=== PATIENT | male | born 1985 | race Caucasian/White ===

== ENCOUNTER 2017-11-24 10:20 | Inpatient (IN) | payer BC ==
[~2017-11-24] VITALS: Ht 180.3 cm; Wt 137.0 kg
[~2017-11-24 10:20] MED LIST: ASPIR-MOX 325325 M1 PO; CLOPIDOGREL BIS75 MG PO; FLAGYL500 MG PO; Gemfibrozil PO; LEVAQUIN750 MG PO; THIAMINE PO; Z.0.COUMADIN7.5 MG PO; Z.0.CYMBALTA60 MG PO; Z.0.DIGOXIN125 MCG PO; Z.0.GABAPENTIN300 MG PO; Z.0.LASIX20 MG PO; Z.0.LISINOPRIL2.5 MG PO; Z.0.METOPROLOL TART2 PO; Z.0.PREVACID30 MG PO; Z.0.SPIRONOLACTONE25 PO; Z.0.VICODIN 5-5001 E PO; [UNRECOGNIZED DRUG - OTHER] PO; [UNRECOGNIZED DRUG - OTHER] PO
[2017-11-24] MEDS ORDERED: ASPIRIN 81 MG CHEW TAB PO ONE ×2 (10:30→12:00)
[2017-11-24 10:48] LABS: BASOPHILS # (AUTO) 0.2 (0.0-0.1); BASOPHILS % 1.5 % (0.0-1.0); EOSINOPHILS # (AUTO) 0.2 (0.0-0.4); HEMATOCRIT 47.8 % (38.2-49.6); HEMOGLOBIN 16.3 g/dL (14.0-18.0); LYMPHOCYTES # (AUTO) 4.4 (1.0-3.2); LYMPHOCYTES % 42.3 % (18.0-39.1); MEAN CORPUSCULAR HGB CONC 34.1 g/dL (31-35); MEAN CORPUSCULAR VOLUME 87.9 fL (81-99); MONOCYTES # (AUTO) 0.7 (0.2-0.8); MONOCYTES % 6.8 % (4.4-11.3); NEUTROPHILS # (AUTO) 4.8 (2.1-6.9); NEUTROPHILS % 46.6 % (38.7-80.0); PLATELET COUNT 254 x10e3/uL (140-360); RED BLOOD COUNT 5.44 x10e6/uL (4.3-5.7); RED CELL DISTRIBUTION WIDTH 12.5 % (11.7-14.4)
[2017-11-24 10:59] LABS: INR 1.08; PROTHROMBIN TIME 13.2 seconds (11.9-14.5)
[2017-11-24 11:00] LABS: PARTIAL THROMBOPLASTIN TIME 29.8 seconds (23.8-35.5)
[2017-11-24 11:09] LABS: ALANINE AMINOTRANSFERASE 134 IU/L (0-55); ALBUMIN 3.8 g/dL (3.5-5.0); ALBUMIN/GLOBULIN RATIO 0.9 (0.8-2.0); ALKALINE PHOSPHATASE 87 IU/L (40-150); BLOOD UREA NITROGEN 13 mg/dL (7-26); BUN/CREATININE RATIO 11 (6-25); CALCIUM 9.8 mg/dL (8.4-10.2); CARBON DIOXIDE 25 mmol/L (22-29); CHLORIDE 103 mmol/L (98-107); CREATINE KINASE 245 IU/L (30-200); CREATININE, SERUM 1.23 mg/dL (0.72-1.25); EST GLOMERULAR FILTRATION RATE > 60 ML/MIN (60-); GLUCOSE 116 mg/dL (74-118); SODIUM 137 mmol/L (136-145)
[2017-11-24] MEDS ORDERED: SODIUM CHLORIDE 0.9% 500ML 500 ML IV STA (11:17)
[2017-11-24] MEDS ORDERED: MORPHINE SULFATE INJ 4 MG/ML INJ IV STA (11:17)
[2017-11-24] MEDS ORDERED: ONDANSETRON HCL INJ 2 MG/ML VIAL IV STA (11:17)
--- NOTE | 2017-11-24 11:22 | Diagnostic Imaging Report ---
PROCEDURE:X-RAY CHEST, ONE VIEW COMPARISON:None. INDICATIONS:CHEST TIGHTNESS FINDINGS: There are sternotomy wire sutures. There are no consolidations, pleural effusions or pneumothorax. The cardiomediastinal silhouette and pulmonary vasculature are normal. There are no acute osseous abnormalities. CONCLUSION: No acute cardiopulmonary abnormality. Radhames Cardona D.O. Dictated by: Radhames Cardona D.O. on 11/24/2017 at 11:23 Electronically approved by: Radhames Cardona D.O. on 11/24/2017 at 11:23
[2017-11-24 11:26] LABS: BILIRUBIN,URINE NEGATIVE (NEGATIVE); CLARITY,URINE CLEAR (CLEAR); COLOR,URINE YELLOW (YELLOW); KETONES,URINE NEGATIVE (NEGATIVE); LEUKOCYTE ESTERASE ,URINE 1+ (NEGATIVE); NITRITE,URINE NEGATIVE (NEGATIVE); PROTEIN,URINE DIPSTICK 1+ (NEGATIVE); URINE UROBILINOGEN 0.2 mg/dL (0.2 - 1)
[2017-11-24] MEDS ORDERED: MORPHINE SULFATE 2 MG/ML SYR ONE (11:27)
[2017-11-24 11:37] LABS: BACTERIA,URINE RARE /HPF; EPITHELIAL CELLS,URINE RARE /LPF; TRICHOMONAS,URINE FEW
--- OUTSIDE RECORDS SUMMARY | 2017-11-24 12:59 | XMS REPORT ---
[facility] Address Unknown Phone Unavailable Care Team Providers Care Orthopedic Cast Specialist Name Role Phone MARYA MICHAEL Unavailable Unavailable Problems This patient has no known problems. Allergies, Adverse Reactions, Alerts This patient has no known allergies or adverse reactions. Medications This patient has no known medications. Results Test Description Test Time Test Comments Text Results Atomic Results Result Comments CHEST SINGLE (NOT PORTABLE) [place] [address] Patient Name: NUVIA BLANC MR #: [id number] : 1985 Age/Sex: 32/M Req #: [id number] Adm Physician: Ordered by: LYNETTE COONEY VP & GENERAL COUNSEL Report #: [id number] Location: ER Room/Bed: _ Procedure: [id number] DX/CHEST SINGLE (NOT PORTABLE) Exam Date: 11/24/17 Exam Time: 1043 REPORT STATUS: Signed PROCEDURE: X-RAY CHEST, ONE VIEW COMPARISON: None. INDICATIONS: CHEST TIGHTNESS FINDINGS: There are sternotomy wire sutures. There are no consolidations, pleural effusions or pneumothorax. The cardiomediastinal silhouette and pulmonary vasculature are normal. There are no acute osseous abnormalities. CONCLUSION: No acute cardiopulmonary abnormality. Olya Cardona D.O. Dictated by: Olya Cardona D.O. on 11/24/2017 at 11:23 Electronically approved by: Olya Cardona D.O. on 11/24/2017 at 11:23 Dictated By: OLYA CARDONA DO 1123 Transcribed By: LEODAN on 11/24/17 1123 COPY TO: LYNETTE COONEY NP
[2017-11-24] MEDS: ONDANSETRON HCL 4 MG ORAL DISINTEGRATING TAB PO PRN ×2 (15:30→19:59)
[2017-11-24] MEDS: MORPHINE SULFATE 2 MG/ML SYR IV PRN ×2 (15:31→19:59)
[2017-11-24 19:44] LABS: CREATINE KINASE MB 2.1 ng/mL (0-5.0)
[2017-11-24 20:53] VITALS: BP 141/78
--- NOTE | 2017-11-24 21:49 | Consultation ---
DATE OF CONSULTATION: November 24, 2017 CARDIAC CONSULTATION REQUESTING PHYSICIAN: Dr. Raygoza. REASON FOR CONSULTATION: Chest pain. HISTORY OF PRESENT ILLNESS: This is a 32-year-old man with history of ASD, status post surgical repair, complicated by myocardial infarction who presents with complaints of chest pain. He reports he was in his usual state of health until this morning when he developed chest tightness around 10 a.m. The pain was 9-10 out of 10 in severity and has been off and on since onset. This was associated with left arm discomfort. However, he denied any shortness of breath, nausea or diaphoresis. He denies palpitations, edema, orthopnea, PND, lightheadedness or syncope. REVIEW OF SYSTEMS: Negative except as per HPI. PAST MEDICAL HISTORY: History of ASD, status post surgical repair complicated by a reported myocardial infarction. PAST SURGICAL HISTORY: ASD repair, cholecystectomy. ALLERGIES: NO KNOWN DRUG ALLERGIES. MEDICATIONS: Please see EMR. SOCIAL HISTORY: He smokes 1-2 cigarettes a day. No alcohol or drugs. FAMILY HISTORY: Pertinent for parents with coronary artery disease with first myocardial infarction in the 40s and multiple stents. PHYSICAL EXAMINATION VITAL SIGNS: Temperature 98.1 degrees, pulse 88, respiratory rate 20, blood pressure 130/86, oxygen saturation 96% on room air. GENERAL: An obese gentleman in no acute distress. He is well-nourished, well-developed. HEENT: Normocephalic, atraumatic. Pupils are equal. No scleral icterus. NECK: Supple. No thyromegaly or cervical lymphadenopathy. No carotid bruits. LUNGS: Clear to auscultation bilaterally. No wheezes or crackles. CARDIOVASCULAR: Normal rate, regular rhythm. Normal S1 and S2. ABDOMEN: Soft and nontender. EXTREMITIES: No edema. NEUROLOGIC: Nonfocal exam. LABORATORY DATA: WBC 10.33, hemoglobin 16.3, hematocrit 47.8, platelets 254,000. Sodium 137, potassium 4, chloride 103, CO2 of 25, BUN 13, creatinine 1.23. CK 245, CK-MB 2.9. Troponin 0.029. UA 1+ protein, 1+ leukocyte esterase, 11-20 WBCs. Chest x-ray with no acute cardiopulmonary abnormality. EKG: Normal sinus rhythm with nonspecific intraventricular block, inferior infarct, age undetermined. Q-wave abnormality, consider lateral ischemia. IMPRESSION 1. Chest pain. 2. History of atrial septal defect, status post surgical repair complicated by reported myocardial infarction. 3. Elevated LFTs. 4. Obesity. RECOMMENDATIONS: Trend cardiac enzymes. Obtain echocardiogram for further evaluation. Nuclear stress test to rule out ischemia given his family history in the morning. Thank you for this consult. We will continue to follow. Job#: [id number] HOA
[2017-11-25] VITALS (7 sets, daily range): BP systolic 112–141; BP diastolic 55–86
[2017-11-25] MEDS: MORPHINE SULFATE 2 MG/ML SYR IV PRN ×3 (00:25→08:45)
[2017-11-25 07:15] LABS: CHOL/HDL RATIO 7.4 (3.9-4.7)
[2017-11-25 07:41] LABS: CREATINE KINASE MB 1.8 ng/mL (0-5.0); THYROID STIMULATING HORMONE 1.926 uIU/mL (0.350-4.940)
[2017-11-25] MEDS ORDERED: ASPIRIN 81 MG ENTERIC COATED PO SCH (09:00)
--- NOTE | 2017-11-25 10:14 | Progress Note ---
DATE: November 25, 2017 CARDIOLOGY PROGRESS NOTE SUBJECTIVE: Patient reports he still has a little chest pain. He denies any shortness of breath. OBJECTIVE: VITAL SIGNS: Temperature 96.5 degrees, pulse 69, respiratory rate 16, blood pressure 112/55, oxygen saturation 94% on room air. GENERAL: Awake, alert, in no acute distress. LUNGS: Clear to auscultation bilaterally. No wheezes or crackles. CARDIOVASCULAR: Normal rate, regular rhythm. No murmur. Normal S1, S2. ABDOMEN: Soft, nontender. EXTREMITIES: No edema. CARDIAC MEDICATIONS: Aspirin 81 mg p.o. daily. LABS: Cholesterol 230, triglycerides 359, LDL 127, HDL 31. Troponin 0.021. TELEMETRY: Normal sinus rhythm. IMPRESSION: 1. Chest pain. 2. History of atrial septal defect, status post surgical repair, complicated by reported myocardial infarction. 3. Elevated liver function tests. 4. Obesity. RECOMMENDATIONS: Patient has been ruled out for myocardial infarction with serial cardiac biomarkers. Echocardiogram is pending. Nuclear stress test has been ordered to rule out ischemia given his positive family history, awaiting this procedure to be done later today. Further recommendations pending test results. Thank you for this consult. We will continue to follow. Job#: [id number]
[2017-11-25] MEDS ORDERED: METRONIDAZOLE 500 MG TAB PO ONE (12:45)
[2017-11-25] MEDS ORDERED: COREG3.125 MG PO (16:27)
[2017-11-25] MEDS ORDERED: ASPIRIN81 MG PO (16:27)
[2017-11-25] MEDS ORDERED: LISINOPRIL2.5 MG PO (16:27)
[2017-11-25] MEDS ORDERED: LIPITOR20 MG PO (16:28)
--- NOTE | 2017-11-25 16:53 | Discharge Summary ---
PRIMARY CARE DOCTOR: Dr. Annika Pate. FINAL DIAGNOSIS: Noncardiac chest pain. SECONDARY DIAGNOSIS 1. Chronic compensated severe systolic congestive heart failure with an ejection fraction of 20%. 2. Previous open ventricular septal defect repair. 3. Previous myocardial infarction. 4. Morbid obesity. CONSULTANTS: Dr. Persaud, cardiology. PROCEDURES/STUDIES PERFORMED: Stress test. HISTORY: Per H\T\P. HOSPITAL COURSE: Patient's troponins were negative x3, thus no myocardial infarction. A stress test was done, which was unremarkable. However, it did show that his EF is 20%. Patient will be discharged today on aspirin, Coreg, lisinopril and Lipitor. He will need close followup with both his PCP and cardiology. He understands this. If his EF does not improve, he will be a candidate for AICD. Patient was seen and examined today. CONDITION ON DISCHARGE: Stable. DISCHARGE MEDICATIONS: Please see medication reconciliation form. ABDON YANG M.D. Job#: [id number] EV cc:ANNIKA PATE MD
--- NOTE | 2017-12-15 12:37 | Cardiology Report ---
DATE OF STUDY: NUCLEAR STRESS TEST INDICATIONS: Chest pain. PROCEDURE: The patient performed treadmill exercise using a Torres protocol, exercising for 9 minutes 20 seconds to stage 3 and completing an estimated workload of 10.1 metabolic equivalents (METs). The test was terminated due to fatigue. The heart rate was 93 beats per minute at rest and increased to 166 beats per minute at peak exercise, which was 87% of the maximum predicted heart rate. The rest blood pressure was 128/95. It increased to 179/84 mmHg, which is a normal response. The patient did not develop any symptoms other than fatigue during the procedure. The resting electrocardiogram demonstrated normal sinus rhythm, nonspecific intraventricular block with evidence of old inferior myocardial infarction. There were no ST segment changes consistent with myocardial ischemia. Myocardial perfusion imaging was performed at rest following the injection of 11 millicuries of tetrofosmin. At peak exercise, the patient was injected with 33 millicuries of tetrofosmin, and exercise was continued for 1 minute. Gated poststress tomographic imaging was performed. The overall quality of the study is fair. Attenuation artifact was absent. Left ventricular cavity was noted to be enlarged on the rest and stress studies. SPECT images demonstrate a large severe perfusion defect in the inferior wall at rest that is unchanged on stress imaging. Gated SPECT imaging reveals severe global hypokinesis with akinesis of the inferior wall. The left ventricular ejection fraction was calculated to be 21%. IMPRESSION: Normal clinical and hemodynamic exercise treadmill stress test, nondiagnostic electrocardiographic exercise stress test due to the presence of resting EKG abnormalities. Myocardial perfusion imaging is abnormal. There is a large transmural scar in the inferior wall. Overall left ventricular systolic function was abnormal with regional wall motion abnormalities as above. Job#: [id number] EV
== END 2017-11-25 17:04 | disposition home or self-care (01) | DRG 313 ==
LOC: ER 10:20 → ERHOLD 12:55 → MED/SURG 20:09
PROVIDERS: ADMIT Internal Medicine; ATTEND Internal Medicine
DX: R07.89 Other chest pain (principal); I25.2 Old myocardial infarction; I50.22 Chronic systolic (congestive) heart failure; K76.0 Fatty (change of) liver, not elsewhere classified; Z68.41 Body mass index [BMI] 40.0-44.9, adult; E66.01 Morbid (severe) obesity due to excess calories
CPT/HCPCS: 36415; 71045; 78452; 80053; 80061; 81001; 82550; 82553; 84443; 84484; 85025; 85610; 85730; 93005; 93017; 93306; 99284; A9502; J2270; J2405; J7040

== ENCOUNTER 2018-10-24 20:56 | Emergency (ER) | payer BC ==
[~2018-10-24] VITALS: Ht 180.3 cm; Wt 137.0 kg
[~2018-10-24 20:56] MED LIST changes: +ASPIRIN81 MG PO; +COREG3.125 MG PO; +LIPITOR20 MG PO; +LISINOPRIL2.5 MG PO
--- NOTE | 2018-10-24 22:03 | Diagnostic Imaging Report ---
Exam: Right foot series, 3 views. Clinical History: Right foot pain after injury Comparison: None. Findings: 3 views of the right foot. There is normal bone mineralization. Negative for acute, displaced fracture or dislocation. Joint spaces are preserved. No soft tissue swelling. Impression: 1. Unremarkable right foot series. Signed by: Dr. Jakub Fry M.D. on 10/24/2018 9:59 PM
[2018-10-24] MEDS ORDERED: ACETAMINOPHEN/CODEINE 300MG - 30MG TAB PO ONE (22:15)
--- NOTE | 2018-10-24 22:46 | Diagnostic Imaging Report ---
Exam: Right Ankle Series. History: Rolled ankle playing basketball Comparison: None. DISCUSSION: 3 views of the right ankle. There is normal bone mineralization. No evidence of acute, displaced fracture or dislocation. Ankle mortise is preserved.No osteochondral lesion. No abnormal soft tissue calcification or mass. No soft tissue swelling. IMPRESSION: 1. Unremarkable right ankle series. The staff physician below has personally reviewed this exam on the date of dictation. Signed by: Dr. Jakub Fry M.D. on 10/24/2018 10:43 PM
--- NOTE | 2018-10-24 23:02 | NUR ---
4 INCH LUISITO WRAP, ANKLE STIRRUP SPLINT APPLIED, INST ON USE, VERB UNDERSTANDING
== END 2018-10-24 23:29 | disposition home or self-care (01) ==
LOC: ER 20:56
DX: M25.571 Pain in right ankle and joints of right foot (principal); S93.431A Sprain of tibiofibular ligament of right ankle, initial encounter; S93.611A Sprain of tarsal ligament of right foot, initial encounter; X50.1XXA Overexertion from prolonged static or awkward postures, initial encounter; Y93.67 Activity, basketball; Y92.008 Other place in unspecified non-institutional (private) residence as the place of occurrence of the external cause; I25.10 Atherosclerotic heart disease of native coronary artery without angina pectoris; E78.5 Hyperlipidemia, unspecified; R01.1 Cardiac murmur, unspecified; I25.2 Old myocardial infarction; Z87.19 Personal history of other diseases of the digestive system
CPT/HCPCS: 99283